=== PATIENT | female | born 1980 | race Caucasian/White ===

== ENCOUNTER 2023-01-24 16:34 | Inpatient (IN) | payer OTHER ==
[~2023-01-24] VITALS: Ht 152.4 cm; Wt 78.1 kg
[2023-01-24 16:40] VITALS: BP 120/86
[2023-01-24 17:31] LABS: BASO # 0.1 10*3/uL (0.0-0.1); BASO % 0.9 % (0.0-1.0); EOS # 0.3 10*3/uL (0.0-0.4); EOS % 3.5 % (1.0-4.0); HEMATOCRIT 39.3 % (37.0-47.0); LYMPH # 2.1 10*3/uL (1.3-4.4); LYMPH % 23.3 % (27.0-41.0); MEAN CELL VOLUME 83.4 fl (81.0-99.0); MEAN CORPUSCULAR HGB 27.4 pg (27.0-31.0); MEAN CORPUSCULAR HGB CONC 32.8 g/dl (33.0-37.0); MEAN PLATELET VOLUME 9.9 fl (9.6-12.3); MONO # 0.8 10*3/uL (0.1-1.0); NEUT # 5.6 10*3/uL (2.3-7.9); NEUT % 62.9 % (47.0-73.0); PLATELET COUNT AUTOMATED 355 10*3/uL (130-400); RED BLOOD COUNT 4.71 10*6/uL (4.10-5.10); RED CELL DISTRI WIDTH 13.7 % (0-14.5)
[2023-01-24 17:52] LABS: ALKALINE PHOSPHATASE 73 U/L (46-116); BUN 11 mg/dl (9-23); CHLORIDE 104 mmol/L (98-107); LIPASE 32 U/L (12-53); POTASSIUM 3.6 mmol/L (3.4-5.1); SGPT/ALT 21 U/L (10-49)
[2023-01-24 17:53] LABS: ACT PARTIAL THROMBO TIME 28.1 SECONDS (20.0-32.1); INTERNATIONAL NORM RATIO 1.1 (2.0-3.5)
[2023-01-24 17:57] LABS: BETA-HCG, QUANT < 3.0 mIU/mL (3-10)
[2023-01-24 18:25] LABS: BILIRUBIN Negative (Negative); BLOOD Negative (Negative); CLARITY Cloudy (Clear); COLOR Dark Yellow (Yellow); GLUCOSE 2+ (Negative); KETONE Trace (Negative); LEUKO ESTERASE Trace (Negative); NITRITE Negative (Negative); SPECIFIC GRAVITY >= 1.030 (1.001-1.030)
[2023-01-24 18:34] LABS: BACTERIA 1+; MUCOUS 3+
[2023-01-24] MEDS ORDERED: CLONAZEPAM1 M1 PO (19:24)
[2023-01-24] MEDS ORDERED: GABAPENTIN600 MG PO (19:25)
[2023-01-24] MEDS ORDERED: FLAGYL 375375 MG PO (19:26)
[2023-01-24] MEDS ORDERED: KLONOPIN0.5 MG PO (19:27)
[2023-01-24] MEDS ORDERED: ATOMOXETINE HCL40 MG PO (19:29)
[2023-01-24] MEDS ORDERED: ZOLPIDEM10 MG PO (19:30)
[2023-01-24] MEDS ORDERED: HYDROXYZIN PO (19:31)
[2023-01-24] MEDS ORDERED: HYDROXYZINE HYD50 MG PO (20:41)
[2023-01-24] MEDS ORDERED: MIRTAZAPINE15 M2 PO (20:44)
[2023-01-24 20:52] VITALS: BP 129/94
[2023-01-24 23:53] VITALS: BP 150/108
[2023-01-25 04:04] VITALS: BP 134/90
[2023-01-25 08:00] VITALS: BP 130/84
[2023-01-25 08:45] LABS: BASO # 0.1 10*3/uL (0.0-0.1); BASO % 0.9 % (0.0-1.0); EOS # 0.4 10*3/uL (0.0-0.4); EOS % 6.3 % (1.0-4.0); HEMATOCRIT 37.8 % (37.0-47.0); LYMPH % 28.6 % (27.0-41.0); MEAN CELL VOLUME 86.1 fl (81.0-99.0); MEAN CORPUSCULAR HGB 27.1 pg (27.0-31.0); MEAN CORPUSCULAR HGB CONC 31.5 g/dl (33.0-37.0); MEAN PLATELET VOLUME 10.1 fl (9.6-12.3); MONO # 0.8 10*3/uL (0.1-1.0); MONO % 11.5 % (3.0-9.0); NEUT # 3.6 10*3/uL (2.3-7.9); NEUT % 52.4 % (47.0-73.0); PLATELET COUNT AUTOMATED 312 10*3/uL (130-400); RED BLOOD COUNT 4.39 10*6/uL (4.10-5.10); RED CELL DISTRI WIDTH 13.8 % (0-14.5); WHITE BLOOD COUNT 6.8 10*3/uL (4.8-10.8)
[2023-01-25 09:21] LABS: ALKALINE PHOSPHATASE 62 U/L (46-116); BUN 7 mg/dl (9-23); CHLORIDE 107 mmol/L (98-107); CHOLESTEROL 131 mg/dL (<200); FREE T4 1.02 ng/dl (0.89-1.76); LDL CHOLESTEROL 73 mg/dL (9-159); SGPT/ALT 14 U/L (10-49); TOTAL PROTEIN 6.2 gm/dL (6.0-8.0); TRIGLYCERIDES 121 mg/dl (<150)
[2023-01-25 12:00] VITALS: BP 117/69
[2023-01-25 16:00] VITALS: BP 125/64
[2023-01-25 20:25] VITALS: BP 150/102
[2023-01-26] VITALS: BP 148/99
[2023-01-26 08:00] VITALS: BP 168/88
[2023-01-26 08:12] LABS: BASO # 0.1 10*3/uL (0.0-0.1); BASO % 0.9 % (0.0-1.0); EOS # 0.5 10*3/uL (0.0-0.4); EOS % 5.1 % (1.0-4.0); HEMATOCRIT 40.9 % (37.0-47.0); LYMPH # 1.8 10*3/uL (1.3-4.4); MEAN CELL VOLUME 86.3 fl (81.0-99.0); MEAN CORPUSCULAR HGB 27.6 pg (27.0-31.0); MONO % 10.9 % (3.0-9.0); NEUT # 5.9 10*3/uL (2.3-7.9); NEUT % 63.5 % (47.0-73.0); PLATELET COUNT AUTOMATED 321 10*3/uL (130-400); RED BLOOD COUNT 4.74 10*6/uL (4.10-5.10); RED CELL DISTRI WIDTH 13.5 % (0-14.5); WHITE BLOOD COUNT 9.4 10*3/uL (4.8-10.8)
[2023-01-26 08:43] LABS: CHLORIDE 103 mmol/L (98-107); POTASSIUM 4.4 mmol/L (3.4-5.1)
[2023-01-26 08:44] LABS: BUN < 5 mg/dl (9-23)
[2023-01-26 12:00] VITALS: BP 160/100
[2023-01-26 16:00] VITALS: BP 160/100
[2023-01-26 20:00] VITALS: BP 112/73
[2023-01-27] VITALS: BP 148/98
[2023-01-27 05:24] LABS: CHLORIDE 98 mmol/L (98-107); POTASSIUM 3.8 mmol/L (3.4-5.1)
[2023-01-27 05:26] LABS: BUN < 5 mg/dl (9-23)
[2023-01-27 06:12] LABS: BASO # 0.1 10*3/uL (0.0-0.1); BASO % 0.6 % (0.0-1.0); EOS # 0.3 10*3/uL (0.0-0.4); EOS % 2.8 % (1.0-4.0); HEMATOCRIT 43.4 % (37.0-47.0); LYMPH # 2.2 10*3/uL (1.3-4.4); LYMPH % 18.2 % (27.0-41.0); MEAN CELL VOLUME 84.6 fl (81.0-99.0); MEAN CORPUSCULAR HGB 27.5 pg (27.0-31.0); MEAN CORPUSCULAR HGB CONC 32.5 g/dl (33.0-37.0); MEAN PLATELET VOLUME 10.1 fl (9.6-12.3); MONO # 1.2 10*3/uL (0.1-1.0); MONO % 10.3 % (3.0-9.0); NEUT # 8.1 10*3/uL (2.3-7.9); NEUT % 67.6 % (47.0-73.0); PLATELET COUNT AUTOMATED 383 10*3/uL (130-400); RED BLOOD COUNT 5.13 10*6/uL (4.10-5.10); RED CELL DISTRI WIDTH 13.6 % (0-14.5); WHITE BLOOD COUNT 11.9 10*3/uL (4.8-10.8)
[2023-01-27 08:00] VITALS: BP 113/72
[2023-01-27 12:00] VITALS: BP 112/78
[2023-01-27 16:00] VITALS: BP 114/84
[2023-01-27 20:00] VITALS: BP 117/78
[2023-01-28] VITALS: BP 127/80
[2023-01-28 06:38] LABS: BASO # 0.1 10*3/uL (0.0-0.1); EOS # 0.5 10*3/uL (0.0-0.4); EOS % 7.2 % (1.0-4.0); HEMATOCRIT 42.6 % (37.0-47.0); LYMPH # 2.6 10*3/uL (1.3-4.4); MEAN CELL VOLUME 84.2 fl (81.0-99.0); MEAN CORPUSCULAR HGB 27.5 pg (27.0-31.0); MEAN CORPUSCULAR HGB CONC 32.6 g/dl (33.0-37.0); MEAN PLATELET VOLUME 9.9 fl (9.6-12.3); MONO # 0.8 10*3/uL (0.1-1.0); MONO % 11.9 % (3.0-9.0); NEUT # 3.1 10*3/uL (2.3-7.9); NEUT % 43.5 % (47.0-73.0); PLATELET COUNT AUTOMATED 396 10*3/uL (130-400); RED BLOOD COUNT 5.06 10*6/uL (4.10-5.10); RED CELL DISTRI WIDTH 13.6 % (0-14.5); WHITE BLOOD COUNT 7.1 10*3/uL (4.8-10.8)
[2023-01-28 08:00] VITALS: BP 118/83
[2023-01-28 08:41] LABS: BUN 5 mg/dl (9-23); CHLORIDE 103 mmol/L (98-107); POTASSIUM 3.9 mmol/L (3.4-5.1)
[2023-01-28 12:00] VITALS: BP 130/100
[2023-01-28 16:00] VITALS: BP 123/79
[2023-01-28 20:00] VITALS: BP 138/83
[2023-01-29] VITALS: BP 131/74
[2023-01-29 06:45] LABS: BASO # 0.1 10*3/uL (0.0-0.1); BASO % 1.3 % (0.0-1.0); EOS # 0.4 10*3/uL (0.0-0.4); EOS % 7.4 % (1.0-4.0); HEMATOCRIT 39.6 % (37.0-47.0); LYMPH # 1.9 10*3/uL (1.3-4.4); LYMPH % 34.5 % (27.0-41.0); MEAN CELL VOLUME 84.6 fl (81.0-99.0); MEAN CORPUSCULAR HGB 27.4 pg (27.0-31.0); MEAN CORPUSCULAR HGB CONC 32.3 g/dl (33.0-37.0); MEAN PLATELET VOLUME 9.6 fl (9.6-12.3); MONO # 0.8 10*3/uL (0.1-1.0); NEUT # 2.3 10*3/uL (2.3-7.9); NEUT % 42.4 % (47.0-73.0); PLATELET COUNT AUTOMATED 361 10*3/uL (130-400); RED BLOOD COUNT 4.68 10*6/uL (4.10-5.10); RED CELL DISTRI WIDTH 13.5 % (0-14.5); WHITE BLOOD COUNT 5.5 10*3/uL (4.8-10.8)
[2023-01-29 07:03] LABS: CHLORIDE 103 mmol/L (98-107); POTASSIUM 3.7 mmol/L (3.4-5.1)
[2023-01-29 07:05] LABS: BUN < 5 mg/dl (9-23)
[2023-01-29 08:21] VITALS: BP 129/88
[2023-01-29 12:18] VITALS: BP 134/109
[2023-01-29] MEDS ORDERED: METRONIDAZOLE500 M1 PO (14:47)
[2023-01-29] MEDS ORDERED: BACTRIM 400-801 EACH PO (14:49)
[2023-01-29] MEDS ORDERED: LISINOPRIL10 M1 PO (14:50)
[2023-01-29 15:00] VITALS: BP 144/96
[2023-01-29 15:30] VITALS: BP 148/143
[2023-01-29 17:12] VITALS: BP 141/92
[2023-01-29] MEDS ORDERED: LISINOPRIL20 MG PO (17:15)
[2023-01-29] MEDS ORDERED: HYDROCODONE-AC1 EAC1 PO (17:32)
== END 2023-01-29 18:50 | disposition home or self-care (01) | DRG 244 ==
LOC: ED 16:34 → EDHOLD 19:02 → 5E 19:02 → EDHOLD 01-25 07:47 → 5E 01-25 19:43
PROVIDERS: Emergency Medicine; Family Medicine; Internal Medicine; ADMIT Internal Medicine; ATTEND Internal Medicine
DX: K57.33 Diverticulitis of large intestine without perforation or abscess with bleeding (principal); E87.1 Hypo-osmolality and hyponatremia; E11.40 Type 2 diabetes mellitus with diabetic neuropathy, unspecified; N30.00 Acute cystitis without hematuria; K58.9 Irritable bowel syndrome, unspecified; K43.9 Ventral hernia without obstruction or gangrene; E11.65 Type 2 diabetes mellitus with hyperglycemia; K76.0 Fatty (change of) liver, not elsewhere classified; F51.04 Psychophysiologic insomnia; B95.62 Methicillin resistant Staphylococcus aureus infection as the cause of diseases classified elsewhere; F32.9 Major depressive disorder, single episode, unspecified; M19.90 Unspecified osteoarthritis, unspecified site; F41.9 Anxiety disorder, unspecified; G43.909 Migraine, unspecified, not intractable, without status migrainosus; Z88.0 Allergy status to penicillin; Z88.8 Allergy status to other drugs, medicaments and biological substances; Z91.041 Radiographic dye allergy status; Q79.60 Ehlers-Danlos syndrome, unspecified; Z90.49 Acquired absence of other specified parts of digestive tract; Z79.899 Other long term (current) drug therapy

== ENCOUNTER 2023-02-06 10:58 | Emergency (ER) | payer OTHER ==
[~2023-02-06 10:58] MED LIST: ATOMOXETINE HCL40 MG PO; BACTRIM 400-801 EACH PO; CLONAZEPAM1 M1 PO; FLAGYL 375375 MG PO; GABAPENTIN600 MG PO; HYDROCODONE-AC1 EAC1 PO; HYDROXYZIN PO; HYDROXYZINE HYD50 MG PO; KLONOPIN0.5 MG PO; LISINOPRIL10 M1 PO; LISINOPRIL20 MG PO; METRONIDAZOLE500 M1 PO; MIRTAZAPINE15 M2 PO; ZOLPIDEM10 MG PO
[2023-02-06 12:25] LABS: BASO # 0.1 10*3/uL (0.0-0.1); BASO % 1.7 % (0.0-1.0); EOS # 0.2 10*3/uL (0.0-0.4); HEMATOCRIT 42.7 % (37.0-47.0); LYMPH # 1.5 10*3/uL (1.3-4.4); MEAN CELL VOLUME 82.1 fl (81.0-99.0); MEAN CORPUSCULAR HGB 26.7 pg (27.0-31.0); MEAN CORPUSCULAR HGB CONC 32.6 g/dl (33.0-37.0); MEAN PLATELET VOLUME 9.8 fl (9.6-12.3); MONO # 0.4 10*3/uL (0.1-1.0); MONO % 7.9 % (3.0-9.0); NEUT # 2.5 10*3/uL (2.3-7.9); PLATELET COUNT AUTOMATED 461 10*3/uL (130-400); RED CELL DISTRI WIDTH 13.1 % (0-14.5); WHITE BLOOD COUNT 4.8 10*3/uL (4.8-10.8)
[2023-02-06 12:37] LABS: ACT PARTIAL THROMBO TIME 28.1 SECONDS (20.0-32.1)
[2023-02-06 12:49] LABS: ALKALINE PHOSPHATASE 73 U/L (46-116); BUN 7 mg/dl (9-23); CHLORIDE 100 mmol/L (98-107); LIPASE 34 U/L (12-53); POTASSIUM 4.3 mmol/L (3.4-5.1); SGPT/ALT 36 U/L (10-49); TOTAL PROTEIN 7.6 gm/dL (6.0-8.0)
[2023-02-06 12:50] LABS: BETA-HCG, QUANT < 3.0 mIU/mL (3-10)
[2023-02-06 15:02] LABS: BILIRUBIN Negative (Negative); BLOOD Negative (Negative); CLARITY Clear (Clear); COLOR Yellow (Yellow); GLUCOSE Negative (Negative); KETONE Negative (Negative); LEUKO ESTERASE 1+ (Negative); NITRITE Negative (Negative); SPECIFIC GRAVITY 1.015 (1.001-1.030)
[2023-02-06 15:18] LABS: BACTERIA 2+; RBC 0-2 rbc/hpf (0-2)
[2023-02-06] MEDS ORDERED: HYDROCODONE-AC1 EAC1 PO (16:26)
[2023-02-06] MEDS ORDERED: DIFLUCAN150 MG PO (16:26)
[2023-02-06] MEDS ORDERED: METRONIDAZOLE500 M1 PO (16:26)
[2023-02-06] MEDS ORDERED: SEPTDS PO (16:26)
[2023-02-06] MEDS ORDERED: PHENERGAN25 M3 PO (16:26)
== END 2023-02-06 16:40 | disposition home or self-care (01) ==
LOC: ED 10:58
PROVIDERS: Emergency Medicine
DX: K57.32 Diverticulitis of large intestine without perforation or abscess without bleeding (principal); R11.0 Nausea; I48.91 Unspecified atrial fibrillation; Z91.041 Radiographic dye allergy status; Z88.0 Allergy status to penicillin; Z88.8 Allergy status to other drugs, medicaments and biological substances; Z90.49 Acquired absence of other specified parts of digestive tract; Z98.890 Other specified postprocedural states

== ENCOUNTER 2023-02-10 13:10 | Emergency (ER) | payer OTHER ==
[~2023-02-10 13:10] MED LIST changes: +DIFLUCAN150 MG PO; +PHENERGAN25 M3 PO; +SEPTDS PO
[2023-02-10 13:31] LABS: BILIRUBIN Negative (Negative); BLOOD Negative (Negative); CLARITY Cloudy (Clear); COLOR Yellow (Yellow); GLUCOSE 1+ (Negative); KETONE Trace (Negative); LEUKO ESTERASE 1+ (Negative); NITRITE Negative (Negative); PH 6.5 (4.5-8.0); SPECIFIC GRAVITY >= 1.030 (1.001-1.030)
[2023-02-10 13:39] LABS: BACTERIA 2+; EPITHELIAL CELLS 31-40; MUCOUS 2+
[2023-02-10 14:03] LABS: ALKALINE PHOSPHATASE 77 U/L (46-116); BUN 7 mg/dl (9-23); CHLORIDE 101 mmol/L (98-107); POTASSIUM 4.1 mmol/L (3.4-5.1); SGPT/ALT 42 U/L (10-49)
[2023-02-10 14:32] LABS: BASO # 0.1 10*3/uL (0.0-0.1); BASO % 1.3 % (0.0-1.0); EOS # 0.3 10*3/uL (0.0-0.4); EOS % 4.3 % (1.0-4.0); HEMATOCRIT 43.5 % (37.0-47.0); LYMPH # 2.1 10*3/uL (1.3-4.4); LYMPH % 33.7 % (27.0-41.0); MEAN CELL VOLUME 82.2 fl (81.0-99.0); MEAN CORPUSCULAR HGB 27.4 pg (27.0-31.0); MEAN CORPUSCULAR HGB CONC 33.3 g/dl (33.0-37.0); MEAN PLATELET VOLUME 9.6 fl (9.6-12.3); MONO # 0.5 10*3/uL (0.1-1.0); MONO % 8.6 % (3.0-9.0); NEUT # 3.2 10*3/uL (2.3-7.9); NEUT % 51.6 % (47.0-73.0); PLATELET COUNT AUTOMATED 465 10*3/uL (130-400); RED BLOOD COUNT 5.29 10*6/uL (4.10-5.10); RED CELL DISTRI WIDTH 13.3 % (0-14.5); WHITE BLOOD COUNT 6.3 10*3/uL (4.8-10.8)
[2023-02-10] MEDS ORDERED: ONDANSETRON4 MG SL (15:12)
== END 2023-02-10 15:35 | disposition home or self-care (01) ==
LOC: ED 13:10
PROVIDERS: Nurse Practitioner Family
DX: K57.32 Diverticulitis of large intestine without perforation or abscess without bleeding (principal); R11.0 Nausea; I48.91 Unspecified atrial fibrillation; E11.9 Type 2 diabetes mellitus without complications; Z91.041 Radiographic dye allergy status; Z88.0 Allergy status to penicillin; Z88.8 Allergy status to other drugs, medicaments and biological substances; Z90.49 Acquired absence of other specified parts of digestive tract; Z98.890 Other specified postprocedural states

== ENCOUNTER 2023-02-25 09:54 | Emergency (ER) | payer OTHER ==
[~2023-02-25] VITALS: Ht 152.4 cm; Wt 77.1 kg
[~2023-02-25 09:54] MED LIST changes: +ONDANSETRON4 MG SL
[2023-02-25 11:34] LABS: BASO % 0.4 % (0.0-1.0); EOS # 0.2 10*3/uL (0.0-0.4); EOS % 2.3 % (1.0-4.0); HEMATOCRIT 40.2 % (37.0-47.0); LYMPH # 1.7 10*3/uL (1.3-4.4); LYMPH % 19.4 % (27.0-41.0); MEAN CELL VOLUME 82.4 fl (81.0-99.0); MEAN CORPUSCULAR HGB 27.9 pg (27.0-31.0); MEAN CORPUSCULAR HGB CONC 33.8 g/dl (33.0-37.0); MEAN PLATELET VOLUME 9.9 fl (9.6-12.3); MONO # 0.6 10*3/uL (0.1-1.0); NEUT # 6.3 10*3/uL (2.3-7.9); NEUT % 70.3 % (47.0-73.0); PLATELET COUNT AUTOMATED 323 10*3/uL (130-400); RED BLOOD COUNT 4.88 10*6/uL (4.10-5.10); RED CELL DISTRI WIDTH 13.5 % (0-14.5); WHITE BLOOD COUNT 8.9 10*3/uL (4.8-10.8)
[2023-02-25 11:54] LABS: BILIRUBIN Negative (Negative); BLOOD Negative (Negative); CLARITY Clear (Clear); COLOR Yellow (Yellow); GLUCOSE Trace (Negative); KETONE 1+ (Negative); LEUKO ESTERASE Negative (Negative); NITRITE Negative (Negative); PH 6.5 (4.5-8.0); SPECIFIC GRAVITY 1.025 (1.001-1.030)
[2023-02-25 12:04] LABS: ALKALINE PHOSPHATASE 56 U/L (46-116); BUN 8 mg/dl (9-23); CHLORIDE 103 mmol/L (98-107); POTASSIUM 3.9 mmol/L (3.4-5.1); SGPT/ALT 16 U/L (10-49); TOTAL PROTEIN 6.9 gm/dL (6.0-8.0)
[2023-02-25 12:34] LABS: MUCOUS 1+
[2023-02-25 12:35] LABS: BACTERIA 1+
[2023-02-25] MEDS ORDERED: PHENERGAN25 M3 PO ×2 (13:05)
[2023-02-28] MEDS ORDERED: GABAPENTIN600 MG PO (13:45)
[2023-02-28] MEDS ORDERED: HYDROCODONE-AC1 EAC1 PO (13:45)
[2023-02-28] MEDS ORDERED: PHENERGAN25 M3 PO (13:45)
[2023-02-28] MEDS ORDERED: CLONAZEPAM1 MG PO (13:45)
[2023-02-28] MEDS ORDERED: KLONOPIN0.5 MG PO (13:45)
== END 2023-02-25 13:10 | disposition home or self-care (01) ==
LOC: ED 09:54
PROVIDERS: Nurse Practitioner Family
DX: R10.32 Left lower quadrant pain (principal); R11.2 Nausea with vomiting, unspecified; R19.7 Diarrhea, unspecified; F17.290 Nicotine dependence, other tobacco product, uncomplicated; Z91.041 Radiographic dye allergy status; Z88.8 Allergy status to other drugs, medicaments and biological substances; Z88.0 Allergy status to penicillin; Z79.899 Other long term (current) drug therapy; Z79.2 Long term (current) use of antibiotics; Z90.49 Acquired absence of other specified parts of digestive tract; Z98.890 Other specified postprocedural states

== ENCOUNTER 2023-03-15 09:19 | Emergency (ER) | payer OTHER ==
[~2023-03-15] VITALS: Ht 152.4 cm; Wt 72.6 kg
[~2023-03-15 09:19] MED LIST changes: +CLONAZEPAM1 MG PO
[2023-03-15 10:59] LABS: BILIRUBIN Negative (Negative); BLOOD Negative (Negative); CLARITY Turbid (Clear); COLOR Yellow (Yellow); GLUCOSE Negative (Negative); KETONE 1+ (Negative); LEUKO ESTERASE Negative (Negative); NITRITE Negative (Negative); PH 7.5 (4.5-8.0); UROBILINOGEN 0.2 E.U./dl (0.0-1.0)
[2023-03-15 11:14] LABS: BACTERIA 2+
[2023-03-15 11:19] LABS: BASO % 0.5 % (0.0-1.0); HEMATOCRIT 39.6 % (37.0-47.0); LYMPH # 0.8 10*3/uL (1.3-4.4); LYMPH % 13.8 % (27.0-41.0); MEAN CELL VOLUME 84.4 fl (81.0-99.0); MEAN CORPUSCULAR HGB 27.3 pg (27.0-31.0); MEAN CORPUSCULAR HGB CONC 32.3 g/dl (33.0-37.0); MEAN PLATELET VOLUME 10.2 fl (9.6-12.3); MONO # 0.7 10*3/uL (0.1-1.0); MONO % 11.8 % (3.0-9.0); NEUT # 4.2 10*3/uL (2.3-7.9); NEUT % 73.7 % (47.0-73.0); PLATELET COUNT AUTOMATED 316 10*3/uL (130-400); RED BLOOD COUNT 4.69 10*6/uL (4.10-5.10); WHITE BLOOD COUNT 5.7 10*3/uL (4.8-10.8)
[2023-03-15 11:44] LABS: ALKALINE PHOSPHATASE 60 U/L (46-116); CHLORIDE 103 mmol/L (98-107); LIPASE 31 U/L (12-53); POTASSIUM 3.9 mmol/L (3.4-5.1); SGPT/ALT 29 U/L (5-49); TOTAL PROTEIN 6.9 gm/dL (6.0-8.0)
[2023-03-15 11:47] LABS: BUN < 5 mg/dl (9-23)
[2023-03-15] MEDS ORDERED: METRONIDAZOLE500 M1 PO ×2 (11:57)
[2023-03-15] MEDS ORDERED: TRAMADOL HCL50 MG PO ×2 (11:57)
[2023-03-15] MEDS ORDERED: ONDANSETRON4 MG SL ×2 (11:57)
[2023-03-15] MEDS ORDERED: CIPRO500 MG PO ×2 (11:57)
[2023-03-19] MEDS ORDERED: MELATONIN10 M2 PO (21:43)
== END 2023-03-15 12:11 | disposition home or self-care (01) ==
LOC: ED 09:19
PROVIDERS: Emergency Medicine
DX: K52.9 Noninfective gastroenteritis and colitis, unspecified (principal); R11.2 Nausea with vomiting, unspecified; R00.2 Palpitations; R10.9 Unspecified abdominal pain; R07.81 Pleurodynia; Z91.041 Radiographic dye allergy status; Z88.8 Allergy status to other drugs, medicaments and biological substances; Z88.0 Allergy status to penicillin; Z90.49 Acquired absence of other specified parts of digestive tract; Z98.890 Other specified postprocedural states; F17.290 Nicotine dependence, other tobacco product, uncomplicated

== ENCOUNTER 2023-03-18 10:53 | Emergency (ER) | payer MEDICAID ==
[~2023-03-18] VITALS: Ht 152.4 cm; Wt 72.6 kg
[~2023-03-18 10:53] MED LIST changes: +CIPRO500 MG PO; +TRAMADOL HCL50 MG PO
[2023-03-18 12:22] LABS: BILIRUBIN Negative (Negative); BLOOD Trace-Lysed (Negative); CLARITY Turbid (Clear); COLOR Yellow (Yellow); GLUCOSE Negative (Negative); KETONE 4+ (Negative); LEUKO ESTERASE 2+ (Negative); NITRITE Negative (Negative); SPECIFIC GRAVITY 1.025 (1.001-1.030); UROBILINOGEN 0.2 E.U./dl (0.0-1.0)
[2023-03-18 12:22] LABS: BASO % 0.2 % (0.0-1.0); EOS % 0.3 % (1.0-4.0); LYMPH # 1.2 10*3/uL (1.3-4.4); LYMPH % 13.8 % (27.0-41.0); MEAN CELL VOLUME 83.7 fl (81.0-99.0); MEAN CORPUSCULAR HGB 27.3 pg (27.0-31.0); MEAN CORPUSCULAR HGB CONC 32.6 g/dl (33.0-37.0); MEAN PLATELET VOLUME 10.2 fl (9.6-12.3); MONO # 0.3 10*3/uL (0.1-1.0); MONO % 3.2 % (3.0-9.0); NEUT # 7.4 10*3/uL (2.3-7.9); NEUT % 82.3 % (47.0-73.0); PLATELET COUNT AUTOMATED 355 10*3/uL (130-400); RED BLOOD COUNT 5.02 10*6/uL (4.10-5.10); RED CELL DISTRI WIDTH 13.6 % (0-14.5)
[2023-03-18 12:32] LABS: BACTERIA 4+; EPITHELIAL CELLS TNTC; WBC TNTC wbc/hpf (0-5)
[2023-03-18 12:33] LABS: RBC 0-2 rbc/hpf (0-2)
[2023-03-18 12:48] LABS: ALKALINE PHOSPHATASE 63 U/L (46-116); BUN 10 mg/dl (9-23); CHLORIDE 99 mmol/L (98-107); LIPASE 28 U/L (12-53); POTASSIUM 4.1 mmol/L (3.4-5.1); SGPT/ALT 28 U/L (5-49); TOTAL PROTEIN 7.7 gm/dL (6.0-8.0)
[2023-03-18] MEDS ORDERED: ONDANSETRON4 MG SL (14:29)
[2023-03-19] MEDS ORDERED: MELATONIN10 M2 PO (21:43)
[2023-03-21] MEDS ORDERED: ONDANSETRON4 MG SL (12:05)
[2023-03-21] MEDS ORDERED: GABAPENTIN600 MG PO (12:05)
== END 2023-03-18 14:38 | disposition home or self-care (01) ==
LOC: ED 10:53
PROVIDERS: Physician Assistant Medical
DX: N39.0 Urinary tract infection, site not specified (principal); K52.9 Noninfective gastroenteritis and colitis, unspecified; Z91.041 Radiographic dye allergy status; Z88.0 Allergy status to penicillin; Z88.8 Allergy status to other drugs, medicaments and biological substances; Z98.890 Other specified postprocedural states; F17.290 Nicotine dependence, other tobacco product, uncomplicated

== ENCOUNTER 2023-03-18 18:16 | Emergency (ER) | payer MEDICAID ==
[2023-03-18 20:05] LABS: URINE AMPHETAMINES Negative (1000ng/ml); URINE BARBITURATES Negative (200ng/ml); URINE BENZODIAZEPINES Negative (200ng/ml); URINE CANNABINOIDS (THC) Positive (50ng/ml); URINE COCAINE Negative (300ng/ml); URINE METHADONE Negative (300ng/ml); URINE OPIATES Negative (300ng/ml); URINE PHENCYCLIDINE Negative (25ng/ml)
[2023-03-18 20:24] LABS: ETHYL ALCOHOL < 3.0 mg/dl (<3)
[2023-03-19] MEDS ORDERED: MELATONIN10 M2 PO (21:43)
[2023-03-21] MEDS ORDERED: GABAPENTIN600 MG PO (12:05)
[2023-03-21] MEDS ORDERED: ONDANSETRON4 MG SL (12:05)
== END 2023-03-18 20:54 | disposition home or self-care (01) ==
LOC: ED 18:16
PROVIDERS: Physician Assistant Medical
DX: F32.A Depression, unspecified (principal); Z91.041 Radiographic dye allergy status; Z88.0 Allergy status to penicillin; Z88.8 Allergy status to other drugs, medicaments and biological substances; Z90.49 Acquired absence of other specified parts of digestive tract; Z98.890 Other specified postprocedural states; Z79.899 Other long term (current) drug therapy

== ENCOUNTER 2023-03-27 11:34 | Emergency (ER) | payer MEDICAID ==
[~2023-03-27] VITALS: Wt 73.5 kg
[~2023-03-27 11:34] MED LIST changes: +MELATONIN10 M2 PO
[2023-03-27] MEDS ORDERED: DILTIAZEM 24HR180 MG PO (11:47)
[2023-03-27 12:46] LABS: BASO % 0.3 % (0.0-1.0); EOS # 0.1 10*3/uL (0.0-0.4); EOS % 0.4 % (1.0-4.0); HEMATOCRIT 42.5 % (37.0-47.0); LYMPH # 1.2 10*3/uL (1.3-4.4); LYMPH % 9.6 % (27.0-41.0); MEAN CELL VOLUME 80.5 fl (81.0-99.0); MEAN CORPUSCULAR HGB 27.3 pg (27.0-31.0); MEAN CORPUSCULAR HGB CONC 33.9 g/dl (33.0-37.0); MEAN PLATELET VOLUME 9.9 fl (9.6-12.3); MONO # 0.8 10*3/uL (0.1-1.0); MONO % 6.7 % (3.0-9.0); NEUT # 9.9 10*3/uL (2.3-7.9); NEUT % 82.6 % (47.0-73.0); PLATELET COUNT AUTOMATED 496 10*3/uL (130-400); RED BLOOD COUNT 5.28 10*6/uL (4.10-5.10)
[2023-03-27 13:05] LABS: ALKALINE PHOSPHATASE 59 U/L (46-116); BUN 8 mg/dl (9-23); CHLORIDE 102 mmol/L (98-107); LIPASE 28 U/L (12-53); POTASSIUM 4.1 mmol/L (3.4-5.1); SGPT/ALT 20 U/L (5-49); TOTAL PROTEIN 7.7 gm/dL (6.0-8.0)
[2023-03-27 13:25] LABS: BILIRUBIN Negative (Negative); BLOOD Negative (Negative); CLARITY Cloudy (Clear); COLOR Yellow (Yellow); GLUCOSE Trace (Negative); KETONE 4+ (Negative); LEUKO ESTERASE Negative (Negative); NITRITE Negative (Negative); SPECIFIC GRAVITY 1.025 (1.001-1.030)
[2023-03-27 13:42] LABS: BACTERIA 1+; EPITHELIAL CELLS TNTC
[2023-03-27] MEDS ORDERED: CIPRO500 MG PO (13:54)
[2023-03-27] MEDS ORDERED: METRONIDAZOLE500 M1 PO (13:54)
== END 2023-03-27 14:30 | disposition home or self-care (01) ==
LOC: ED 11:34
PROVIDERS: Nurse Practitioner Family
DX: K52.9 Noninfective gastroenteritis and colitis, unspecified (principal); E11.65 Type 2 diabetes mellitus with hyperglycemia; E87.1 Hypo-osmolality and hyponatremia; F41.9 Anxiety disorder, unspecified; M19.90 Unspecified osteoarthritis, unspecified site; I48.91 Unspecified atrial fibrillation; I10 Essential (primary) hypertension; G43.909 Migraine, unspecified, not intractable, without status migrainosus; E11.40 Type 2 diabetes mellitus with diabetic neuropathy, unspecified; Z90.49 Acquired absence of other specified parts of digestive tract; Z91.041 Radiographic dye allergy status; Z88.0 Allergy status to penicillin; Z88.8 Allergy status to other drugs, medicaments and biological substances; Z98.890 Other specified postprocedural states

== ENCOUNTER 2023-04-06 08:52 | Emergency (ER) | payer MEDICAID ==
[~2023-04-06] VITALS: Ht 152.4 cm
[~2023-04-06 08:52] MED LIST changes: +DILTIAZEM 24HR180 MG PO; +LEVOFLOXACIN750 M2 PO; +LINEZOLID600 MG PO; +ONDANSETRON HYDR4 M1 PO; +ZESTRIL10 MG PO
[2023-04-06 09:45] LABS: BASO % 0.6 % (0.0-1.0); EOS % 0.3 % (1.0-4.0); HEMATOCRIT 38.9 % (37.0-47.0); LYMPH # 1.1 10*3/uL (1.3-4.4); MEAN CELL VOLUME 84.2 fl (81.0-99.0); MEAN CORPUSCULAR HGB 27.7 pg (27.0-31.0); MEAN CORPUSCULAR HGB CONC 32.9 g/dl (33.0-37.0); MEAN PLATELET VOLUME 10.3 fl (9.6-12.3); MONO # 0.4 10*3/uL (0.1-1.0); NEUT # 5.5 10*3/uL (2.3-7.9); NEUT % 78.8 % (47.0-73.0); PLATELET COUNT AUTOMATED 294 10*3/uL (130-400); RED BLOOD COUNT 4.62 10*6/uL (4.10-5.10); RED CELL DISTRI WIDTH 15.3 % (0-14.5)
[2023-04-06 10:06] LABS: ALKALINE PHOSPHATASE 53 U/L (46-116); BUN 5 mg/dl (9-23); CHLORIDE 107 mmol/L (98-107); LIPASE 30 U/L (12-53); POTASSIUM 3.5 mmol/L (3.4-5.1); SGPT/ALT 38 U/L (5-49)
[2023-04-06 10:07] LABS: BILIRUBIN Negative (Negative); BLOOD 3+ (Negative); CLARITY Clear (Clear); COLOR Yellow (Yellow); GLUCOSE Trace (Negative); KETONE 1+ (Negative); LEUKO ESTERASE Negative (Negative); NITRITE Negative (Negative); PH 5.5 (4.5-8.0); SPECIFIC GRAVITY 1.025 (1.001-1.030); UROBILINOGEN 0.2 E.U./dl (0.0-1.0)
[2023-04-06 10:11] LABS: B-hCG (QUALITATIVE) NEGATIVE (NEGATIVE); ETHYL ALCOHOL < 3.0 mg/dl (<3)
[2023-04-06 10:14] LABS: URINE AMPHETAMINES Negative (1000ng/ml); URINE BARBITURATES Negative (200ng/ml); URINE BENZODIAZEPINES Negative (200ng/ml); URINE CANNABINOIDS (THC) Positive (50ng/ml); URINE COCAINE Negative (300ng/ml); URINE METHADONE Negative (300ng/ml); URINE OPIATES Negative (300ng/ml); URINE PHENCYCLIDINE Negative (25ng/ml)
[2023-04-06 10:36] LABS: RBC TNTC rbc/hpf (0-2)
[2023-04-06 10:37] LABS: BACTERIA 2+; WBC 0-2 wbc/hpf (0-5)
[2023-04-06] MEDS ORDERED: FLAGYL 375375 MG PO ×4 (13:35→15:30)
== END 2023-04-06 15:41 | disposition home or self-care (01) ==
LOC: ED 08:52
PROVIDERS: Family Medicine
DX: A04.72 Enterocolitis due to Clostridium difficile, not specified as recurrent (principal); N83.202 Unspecified ovarian cyst, left side; F41.9 Anxiety disorder, unspecified; F32.A Depression, unspecified; E11.9 Type 2 diabetes mellitus without complications; I10 Essential (primary) hypertension; J45.909 Unspecified asthma, uncomplicated; F17.290 Nicotine dependence, other tobacco product, uncomplicated; Z91.041 Radiographic dye allergy status; Z88.0 Allergy status to penicillin; Z88.8 Allergy status to other drugs, medicaments and biological substances; Z79.899 Other long term (current) drug therapy; Z79.2 Long term (current) use of antibiotics; Z98.890 Other specified postprocedural states; Z90.49 Acquired absence of other specified parts of digestive tract

== ENCOUNTER 2023-04-09 07:44 | Emergency (ER) | payer MEDICAID ==
[~2023-04-09] VITALS: Ht 152.4 cm
[2023-04-09 08:36] LABS: BASO # 0.1 10*3/uL (0.0-0.1); BASO % 0.8 % (0.0-1.0); EOS # 0.2 10*3/uL (0.0-0.4); EOS % 2.8 % (1.0-4.0); HEMATOCRIT 39.9 % (37.0-47.0); LYMPH # 1.1 10*3/uL (1.3-4.4); LYMPH % 16.2 % (27.0-41.0); MEAN CELL VOLUME 82.6 fl (81.0-99.0); MEAN CORPUSCULAR HGB 27.7 pg (27.0-31.0); MEAN CORPUSCULAR HGB CONC 33.6 g/dl (33.0-37.0); MEAN PLATELET VOLUME 10.3 fl (9.6-12.3); MONO # 0.5 10*3/uL (0.1-1.0); MONO % 7.9 % (3.0-9.0); NEUT # 4.7 10*3/uL (2.3-7.9); NEUT % 72.1 % (47.0-73.0); PLATELET COUNT AUTOMATED 312 10*3/uL (130-400); RED BLOOD COUNT 4.83 10*6/uL (4.10-5.10); RED CELL DISTRI WIDTH 15.2 % (0-14.5); WHITE BLOOD COUNT 6.5 10*3/uL (4.8-10.8)
[2023-04-09 08:47] LABS: ACT PARTIAL THROMBO TIME 26.4 SECONDS (20.0-32.1)
[2023-04-09 08:58] LABS: ALKALINE PHOSPHATASE 51 U/L (46-116); BUN 6 mg/dl (9-23); CHLORIDE 107 mmol/L (98-107); LIPASE 31 U/L (12-53); POTASSIUM 3.5 mmol/L (3.4-5.1); SGPT/ALT 20 U/L (5-49); TOTAL PROTEIN 7.1 gm/dL (6.0-8.0)
[2023-04-09 09:02] LABS: BETA-HCG, QUANT < 3.0 mIU/mL (3-10)
[2023-04-09] MEDS ORDERED: HYDROCODONE-AC1 EAC1 PO ×4 (09:47→10:19)
[2023-04-09] MEDS ORDERED: PHENERGAN25 M3 PO ×4 (09:47→10:19)
[2023-04-10] MEDS ORDERED: ATIVAN1 MG PO (11:46)
== END 2023-04-09 10:30 | disposition home or self-care (01) ==
LOC: ED 07:44
PROVIDERS: Emergency Medicine
DX: A04.72 Enterocolitis due to Clostridium difficile, not specified as recurrent (principal); R11.0 Nausea; E11.9 Type 2 diabetes mellitus without complications; Z91.041 Radiographic dye allergy status; Z88.0 Allergy status to penicillin; Z88.8 Allergy status to other drugs, medicaments and biological substances; Z90.49 Acquired absence of other specified parts of digestive tract; Z98.890 Other specified postprocedural states

== ENCOUNTER 2023-04-10 09:44 | Emergency (ER) | payer MEDICAID ==
[2023-04-10 10:28] LABS: BASO % 0.5 % (0.0-1.0); EOS % 0.1 % (1.0-4.0); LYMPH % 11.4 % (27.0-41.0); MEAN CELL VOLUME 83.3 fl (81.0-99.0); MEAN CORPUSCULAR HGB 27.6 pg (27.0-31.0); MEAN CORPUSCULAR HGB CONC 33.1 g/dl (33.0-37.0); MONO # 0.5 10*3/uL (0.1-1.0); NEUT # 6.9 10*3/uL (2.3-7.9); NEUT % 81.9 % (47.0-73.0); PLATELET COUNT AUTOMATED 324 10*3/uL (130-400); RED BLOOD COUNT 4.68 10*6/uL (4.10-5.10); RED CELL DISTRI WIDTH 15.3 % (0-14.5); WHITE BLOOD COUNT 8.4 10*3/uL (4.8-10.8)
[2023-04-10 10:55] LABS: ALKALINE PHOSPHATASE 54 U/L (46-116); BUN 5 mg/dl (9-23); CHLORIDE 104 mmol/L (98-107); LIPASE 28 U/L (12-53); POTASSIUM 3.4 mmol/L (3.4-5.1); SGPT/ALT 18 U/L (5-49)
[2023-04-10 10:57] LABS: BETA-HCG, QUANT < 3.0 mIU/mL (3-10)
[2023-04-10] MEDS ORDERED: ATIVAN1 MG PO (11:46)
== END 2023-04-10 11:48 | disposition home or self-care (01) ==
LOC: ED 09:44
PROVIDERS: Emergency Medicine
DX: F41.9 Anxiety disorder, unspecified (principal); E11.9 Type 2 diabetes mellitus without complications; Z91.041 Radiographic dye allergy status; Z88.0 Allergy status to penicillin; Z88.8 Allergy status to other drugs, medicaments and biological substances; Z90.49 Acquired absence of other specified parts of digestive tract; Z98.890 Other specified postprocedural states

== ENCOUNTER 2023-04-13 09:42 | Emergency (ER) | payer MEDICAID ==
[~2023-04-13] VITALS: Ht 152.4 cm; Wt 72.6 kg
[~2023-04-13 09:42] MED LIST changes: +ATIVAN1 MG PO
[2023-04-13] MEDS ORDERED: FLAGYL 375375 MG PO (09:56)
[2023-04-13 12:05] LABS: BASO # 0.1 10*3/uL (0.0-0.1); BASO % 0.7 % (0.0-1.0); EOS % 0.4 % (1.0-4.0); HEMATOCRIT 40.2 % (37.0-47.0); LYMPH % 12.6 % (27.0-41.0); MEAN CELL VOLUME 83.4 fl (81.0-99.0); MEAN CORPUSCULAR HGB 27.6 pg (27.0-31.0); MEAN CORPUSCULAR HGB CONC 33.1 g/dl (33.0-37.0); MEAN PLATELET VOLUME 9.5 fl (9.6-12.3); MONO # 0.6 10*3/uL (0.1-1.0); MONO % 7.5 % (3.0-9.0); NEUT # 5.9 10*3/uL (2.3-7.9); NEUT % 78.5 % (47.0-73.0); PLATELET COUNT AUTOMATED 403 10*3/uL (130-400); RED BLOOD COUNT 4.82 10*6/uL (4.10-5.10); WHITE BLOOD COUNT 7.6 10*3/uL (4.8-10.8)
[2023-04-13 12:27] LABS: ALKALINE PHOSPHATASE 54 U/L (46-116); BUN 7 mg/dl (9-23); CHLORIDE 106 mmol/L (98-107); LIPASE 29 U/L (12-53); POTASSIUM 4.1 mmol/L (3.4-5.1); SGPT/ALT 16 U/L (5-49); TOTAL PROTEIN 7.2 gm/dL (6.0-8.0)
[2023-04-13] MEDS ORDERED: PHENERGAN25 M3 PO (13:51)
[2023-04-13] MEDS ORDERED: ONDANSETRON4 MG SL (13:51)
== END 2023-04-13 14:25 | disposition home or self-care (01) ==
LOC: ED 09:42
PROVIDERS: Emergency Medicine
DX: R10.84 Generalized abdominal pain (principal); A04.72 Enterocolitis due to Clostridium difficile, not specified as recurrent; R11.2 Nausea with vomiting, unspecified; E11.9 Type 2 diabetes mellitus without complications; I10 Essential (primary) hypertension; E78.5 Hyperlipidemia, unspecified; I48.91 Unspecified atrial fibrillation; F41.9 Anxiety disorder, unspecified; F32.A Depression, unspecified; Z91.041 Radiographic dye allergy status; Z88.0 Allergy status to penicillin; Z88.8 Allergy status to other drugs, medicaments and biological substances; Z90.49 Acquired absence of other specified parts of digestive tract; Z98.890 Other specified postprocedural states

== ENCOUNTER 2023-04-14 08:22 | Emergency (ER) | payer MEDICAID ==
[2023-04-14 08:56] LABS: BASO # 0.1 10*3/uL (0.0-0.1); BASO % 0.6 % (0.0-1.0); EOS # 0.1 10*3/uL (0.0-0.4); EOS % 1.2 % (1.0-4.0); HEMATOCRIT 39.1 % (37.0-47.0); LYMPH # 1.1 10*3/uL (1.3-4.4); LYMPH % 12.5 % (27.0-41.0); MEAN CELL VOLUME 83.9 fl (81.0-99.0); MEAN CORPUSCULAR HGB 28.1 pg (27.0-31.0); MEAN CORPUSCULAR HGB CONC 33.5 g/dl (33.0-37.0); MEAN PLATELET VOLUME 9.5 fl (9.6-12.3); MONO # 0.5 10*3/uL (0.1-1.0); MONO % 6.2 % (3.0-9.0); NEUT # 6.8 10*3/uL (2.3-7.9); NEUT % 79.2 % (47.0-73.0); PLATELET COUNT AUTOMATED 389 10*3/uL (130-400); RED BLOOD COUNT 4.66 10*6/uL (4.10-5.10); RED CELL DISTRI WIDTH 15.1 % (0-14.5); WHITE BLOOD COUNT 8.6 10*3/uL (4.8-10.8)
[2023-04-14 09:20] LABS: ALKALINE PHOSPHATASE 51 U/L (46-116); BUN 8 mg/dl (9-23); CHLORIDE 105 mmol/L (98-107); POTASSIUM 4.3 mmol/L (3.4-5.1); SGPT/ALT 15 U/L (5-49)
== END 2023-04-14 09:38 | disposition home or self-care (01) ==
LOC: ED 08:22
PROVIDERS: Emergency Medicine
DX: R10.9 Unspecified abdominal pain (principal); A04.72 Enterocolitis due to Clostridium difficile, not specified as recurrent; R11.2 Nausea with vomiting, unspecified; E11.9 Type 2 diabetes mellitus without complications; Z91.041 Radiographic dye allergy status; Z88.0 Allergy status to penicillin; Z88.8 Allergy status to other drugs, medicaments and biological substances; Z90.49 Acquired absence of other specified parts of digestive tract; Z98.890 Other specified postprocedural states

== ENCOUNTER 2023-04-24 07:33 | Emergency (ER) | payer MEDICAID ==
[~2023-04-24] VITALS: Ht 152.4 cm; Wt 64.6 kg
[2023-04-24 08:27] LABS: BASO # 0.1 10*3/uL (0.0-0.1); BASO % 1.2 % (0.0-1.0); EOS # 0.1 10*3/uL (0.0-0.4); EOS % 1.9 % (1.0-4.0); HEMATOCRIT 40.9 % (37.0-47.0); LYMPH # 1.4 10*3/uL (1.3-4.4); LYMPH % 23.6 % (27.0-41.0); MEAN CELL VOLUME 85.6 fl (81.0-99.0); MEAN CORPUSCULAR HGB 28.5 pg (27.0-31.0); MEAN CORPUSCULAR HGB CONC 33.3 g/dl (33.0-37.0); MONO # 0.7 10*3/uL (0.1-1.0); MONO % 11.8 % (3.0-9.0); NEUT # 3.6 10*3/uL (2.3-7.9); PLATELET COUNT AUTOMATED 472 10*3/uL (130-400); RED BLOOD COUNT 4.78 10*6/uL (4.10-5.10); WHITE BLOOD COUNT 5.9 10*3/uL (4.8-10.8)
[2023-04-24 08:36] LABS: ACT PARTIAL THROMBO TIME 25.1 SECONDS (20.0-32.1)
[2023-04-24 08:39] LABS: BILIRUBIN 1+ (Negative); BLOOD Negative (Negative); CLARITY Turbid (Clear); COLOR Dark Yellow (Yellow); GLUCOSE Negative (Negative); KETONE Trace (Negative); LEUKO ESTERASE 1+ (Negative); NITRITE Negative (Negative); SPECIFIC GRAVITY >= 1.030 (1.001-1.030)
[2023-04-24 08:50] LABS: EPITHELIAL CELLS TNTC
[2023-04-24 08:51] LABS: CALCIUM OXALATE CRYSTALS Trace
[2023-04-24 08:53] LABS: ALKALINE PHOSPHATASE 49 U/L (46-116); BUN 10 mg/dl (9-23); CHLORIDE 106 mmol/L (98-107); LIPASE 35 U/L (12-53); POTASSIUM 4.8 mmol/L (3.4-5.1); SGPT/ALT 17 U/L (5-49); TOTAL PROTEIN 7.2 gm/dL (6.0-8.0)
[2023-04-24 08:54] LABS: BETA-HCG, QUANT < 3.0 mIU/mL (3-10)
== END 2023-04-24 11:26 | disposition home or self-care (01) ==
LOC: ED 07:33
PROVIDERS: Emergency Medicine
DX: F41.9 Anxiety disorder, unspecified (principal); E11.9 Type 2 diabetes mellitus without complications; R10.2 Pelvic and perineal pain; Z91.041 Radiographic dye allergy status; Z88.0 Allergy status to penicillin; Z88.8 Allergy status to other drugs, medicaments and biological substances; Z90.49 Acquired absence of other specified parts of digestive tract; Z98.890 Other specified postprocedural states; Z79.899 Other long term (current) drug therapy

== ENCOUNTER 2023-04-26 09:11 | Emergency (ER) | payer MEDICAID ==
[~2023-04-26] VITALS: Wt 72.6 kg
[2023-04-26 11:31] LABS: BASO # 0.1 10*3/uL (0.0-0.1); BASO % 0.8 % (0.0-1.0); EOS % 0.5 % (1.0-4.0); HEMATOCRIT 41.7 % (37.0-47.0); LYMPH # 1.3 10*3/uL (1.3-4.4); LYMPH % 21.5 % (27.0-41.0); MEAN CELL VOLUME 86.7 fl (81.0-99.0); MEAN CORPUSCULAR HGB 27.7 pg (27.0-31.0); MEAN CORPUSCULAR HGB CONC 31.9 g/dl (33.0-37.0); MEAN PLATELET VOLUME 10.3 fl (9.6-12.3); MONO # 0.5 10*3/uL (0.1-1.0); MONO % 8.9 % (3.0-9.0); NEUT # 4.1 10*3/uL (2.3-7.9); NEUT % 67.8 % (47.0-73.0); PLATELET COUNT AUTOMATED 411 10*3/uL (130-400); RED BLOOD COUNT 4.81 10*6/uL (4.10-5.10); RED CELL DISTRI WIDTH 15.1 % (0-14.5); WHITE BLOOD COUNT 6.1 10*3/uL (4.8-10.8)
[2023-04-26 11:58] LABS: ALKALINE PHOSPHATASE 50 U/L (46-116); BUN 10 mg/dl (9-23); CHLORIDE 106 mmol/L (98-107); LIPASE 36 U/L (12-53); POTASSIUM 4.6 mmol/L (3.4-5.1); SGPT/ALT 15 U/L (5-49); TOTAL PROTEIN 7.2 gm/dL (6.0-8.0)
== END 2023-04-26 12:06 | disposition home or self-care (01) ==
LOC: ED 09:11
PROVIDERS: Emergency Medicine
DX: R10.84 Generalized abdominal pain (principal); R11.2 Nausea with vomiting, unspecified; F41.9 Anxiety disorder, unspecified; F32.A Depression, unspecified; E11.9 Type 2 diabetes mellitus without complications; I10 Essential (primary) hypertension; E78.5 Hyperlipidemia, unspecified; F17.290 Nicotine dependence, other tobacco product, uncomplicated; Z91.041 Radiographic dye allergy status; Z88.8 Allergy status to other drugs, medicaments and biological substances; Z88.0 Allergy status to penicillin; Z79.899 Other long term (current) drug therapy; Z90.49 Acquired absence of other specified parts of digestive tract; Z98.890 Other specified postprocedural states

== ENCOUNTER 2023-04-29 08:22 | Emergency (ER) | payer MEDICAID ==
[~2023-04-29] VITALS: Ht 152.4 cm; Wt 69.9 kg
[2023-04-29 09:00] LABS: BASO % 0.7 % (0.0-1.0); EOS # 0.1 10*3/uL (0.0-0.4); EOS % 1.9 % (1.0-4.0); LYMPH # 1.6 10*3/uL (1.3-4.4); LYMPH % 26.8 % (27.0-41.0); MEAN CELL VOLUME 83.7 fl (81.0-99.0); MEAN CORPUSCULAR HGB CONC 33.4 g/dl (33.0-37.0); MEAN PLATELET VOLUME 9.6 fl (9.6-12.3); MONO # 0.5 10*3/uL (0.1-1.0); MONO % 8.5 % (3.0-9.0); NEUT # 3.7 10*3/uL (2.3-7.9); NEUT % 61.8 % (47.0-73.0); PLATELET COUNT AUTOMATED 392 10*3/uL (130-400); RED BLOOD COUNT 4.54 10*6/uL (4.10-5.10); RED CELL DISTRI WIDTH 14.6 % (0-14.5); WHITE BLOOD COUNT 5.9 10*3/uL (4.8-10.8)
[2023-04-29 09:23] LABS: ALKALINE PHOSPHATASE 48 U/L (46-116); BUN 7 mg/dl (9-23); CHLORIDE 104 mmol/L (98-107); POTASSIUM 3.8 mmol/L (3.4-5.1); SGPT/ALT 13 U/L (5-49); TOTAL PROTEIN 6.9 gm/dL (6.0-8.0)
== END 2023-04-29 10:33 | disposition home or self-care (01) ==
LOC: ED 08:22
PROVIDERS: Emergency Medicine
DX: R51.9 Headache, unspecified (principal); R07.89 Other chest pain; F41.9 Anxiety disorder, unspecified; E11.9 Type 2 diabetes mellitus without complications; I10 Essential (primary) hypertension; F32.A Depression, unspecified; Z91.041 Radiographic dye allergy status; Z88.0 Allergy status to penicillin; Z88.8 Allergy status to other drugs, medicaments and biological substances; Z90.49 Acquired absence of other specified parts of digestive tract; Z98.890 Other specified postprocedural states

== ENCOUNTER 2023-05-01 09:19 | Emergency (ER) | payer MEDICAID ==
[~2023-05-01] VITALS: Wt 69.9 kg
[2023-05-01 10:42] LABS: BASO # 0.1 10*3/uL (0.0-0.1); BASO % 1.1 % (0.0-1.0); EOS # 0.1 10*3/uL (0.0-0.4); EOS % 1.1 % (1.0-4.0); HEMATOCRIT 38.9 % (37.0-47.0); LYMPH % 31.7 % (27.0-41.0); MEAN CELL VOLUME 83.3 fl (81.0-99.0); MEAN CORPUSCULAR HGB 27.6 pg (27.0-31.0); MEAN CORPUSCULAR HGB CONC 33.2 g/dl (33.0-37.0); MEAN PLATELET VOLUME 9.7 fl (9.6-12.3); MONO # 0.7 10*3/uL (0.1-1.0); MONO % 10.8 % (3.0-9.0); NEUT # 3.4 10*3/uL (2.3-7.9); NEUT % 54.8 % (47.0-73.0); PLATELET COUNT AUTOMATED 371 10*3/uL (130-400); RED BLOOD COUNT 4.67 10*6/uL (4.10-5.10); RED CELL DISTRI WIDTH 14.9 % (0-14.5); WHITE BLOOD COUNT 6.2 10*3/uL (4.8-10.8)
[2023-05-01 10:52] LABS: ACT PARTIAL THROMBO TIME 25.2 SECONDS (20.0-32.1)
[2023-05-01 11:04] LABS: ALKALINE PHOSPHATASE 45 U/L (46-116); BETA-HCG, QUANT < 3.0 mIU/mL (3-10); BUN 10 mg/dl (9-23); CHLORIDE 103 mmol/L (98-107); LIPASE 32 U/L (12-53); POTASSIUM 3.7 mmol/L (3.4-5.1); SGPT/ALT 15 U/L (5-49); TOTAL PROTEIN 6.9 gm/dL (6.0-8.0)
== END 2023-05-01 13:25 | disposition home or self-care (01) ==
LOC: ED 09:19
PROVIDERS: Emergency Medicine
DX: G43.909 Migraine, unspecified, not intractable, without status migrainosus (principal); E11.9 Type 2 diabetes mellitus without complications; R10.2 Pelvic and perineal pain; Z91.041 Radiographic dye allergy status; Z88.0 Allergy status to penicillin; Z88.8 Allergy status to other drugs, medicaments and biological substances; Z90.49 Acquired absence of other specified parts of digestive tract; Z98.890 Other specified postprocedural states

== ENCOUNTER 2023-05-04 10:19 | Emergency (ER) | payer OTHER ==
[~2023-05-04] VITALS: Ht 152.4 cm; Wt 70.3 kg
[2023-05-04 12:51] LABS: BILIRUBIN Negative (Negative); BLOOD 2+ (Negative); CLARITY Clear (Clear); COLOR Yellow (Yellow); GLUCOSE 1+ (Negative); KETONE Negative (Negative); LEUKO ESTERASE Negative (Negative); NITRITE Negative (Negative); UROBILINOGEN 0.2 E.U./dl (0.0-1.0)
[2023-05-04 13:02] LABS: BACTERIA 2+; EPITHELIAL CELLS 21-30; RBC TNTC rbc/hpf (0-2)
[2023-05-04 13:19] LABS: BASO # 0.1 10*3/uL (0.0-0.1); BASO % 0.5 % (0.0-1.0); EOS % 0.3 % (1.0-4.0); HEMATOCRIT 36.8 % (37.0-47.0); LYMPH # 1.8 10*3/uL (1.3-4.4); LYMPH % 20.2 % (27.0-41.0); MEAN CELL VOLUME 83.3 fl (81.0-99.0); MEAN CORPUSCULAR HGB 27.6 pg (27.0-31.0); MEAN CORPUSCULAR HGB CONC 33.2 g/dl (33.0-37.0); MEAN PLATELET VOLUME 9.9 fl (9.6-12.3); MONO # 0.7 10*3/uL (0.1-1.0); MONO % 7.6 % (3.0-9.0); NEUT # 6.5 10*3/uL (2.3-7.9); NEUT % 71.1 % (47.0-73.0); PLATELET COUNT AUTOMATED 343 10*3/uL (130-400); RED BLOOD COUNT 4.42 10*6/uL (4.10-5.10); RED CELL DISTRI WIDTH 14.6 % (0-14.5); WHITE BLOOD COUNT 9.1 10*3/uL (4.8-10.8)
[2023-05-04 13:46] LABS: ALKALINE PHOSPHATASE 45 U/L (46-116); BUN 9 mg/dl (9-23); CHLORIDE 107 mmol/L (98-107); LIPASE 36 U/L (12-53); POTASSIUM 4.4 mmol/L (3.4-5.1); SGPT/ALT 13 U/L (5-49); TOTAL PROTEIN 6.8 gm/dL (6.0-8.0)
[2023-05-05] MEDS ORDERED: VISTARIL25 MG PO (11:59)
== END 2023-05-04 17:08 | disposition home or self-care (01) ==
LOC: ED 10:19
PROVIDERS: Physician Assistant Medical
DX: K59.00 Constipation, unspecified (principal); R11.0 Nausea; E11.9 Type 2 diabetes mellitus without complications; Z91.041 Radiographic dye allergy status; Z88.0 Allergy status to penicillin; Z88.8 Allergy status to other drugs, medicaments and biological substances; Z90.49 Acquired absence of other specified parts of digestive tract; Z98.890 Other specified postprocedural states

== ENCOUNTER 2023-05-04 22:32 | Emergency (ER) | payer OTHER ==
[~2023-05-04] VITALS: Ht 152.4 cm; Wt 70.3 kg
[2023-05-04 23:15] LABS: BUN 10 mg/dl (9-23); CHLORIDE 107 mmol/L (98-107); POTASSIUM 4.2 mmol/L (3.4-5.1)
[2023-05-05] MEDS ORDERED: VISTARIL25 MG PO (11:59)
== END 2023-05-04 23:43 | disposition home or self-care (01) ==
LOC: ED 22:32
PROVIDERS: Internal Medicine
DX: F41.9 Anxiety disorder, unspecified (principal); E11.9 Type 2 diabetes mellitus without complications; Z91.041 Radiographic dye allergy status; Z88.0 Allergy status to penicillin; Z88.8 Allergy status to other drugs, medicaments and biological substances; Z90.49 Acquired absence of other specified parts of digestive tract; Z98.890 Other specified postprocedural states

== ENCOUNTER 2023-05-05 09:36 | Emergency (ER) | payer OTHER ==
[~2023-05-05] VITALS: Ht 152.4 cm; Wt 68.0 kg
[2023-05-05 11:30] LABS: BILIRUBIN Negative (Negative); BLOOD Negative (Negative); CLARITY Clear (Clear); COLOR Yellow (Yellow); GLUCOSE Negative (Negative); KETONE Trace (Negative); LEUKO ESTERASE Negative (Negative); NITRITE Negative (Negative); PH 5.5 (4.5-8.0); SPECIFIC GRAVITY >= 1.030 (1.001-1.030)
[2023-05-05 11:37] LABS: URINE AMPHETAMINES Negative (1000ng/ml); URINE BARBITURATES Negative (200ng/ml); URINE BENZODIAZEPINES Positive (200ng/ml); URINE CANNABINOIDS (THC) Positive (50ng/ml); URINE COCAINE Negative (300ng/ml); URINE METHADONE Negative (300ng/ml); URINE OPIATES Negative (300ng/ml); URINE PHENCYCLIDINE Negative (25ng/ml)
[2023-05-05 11:47] LABS: BACTERIA 1+; MUCOUS 1+
[2023-05-05] MEDS ORDERED: VISTARIL25 MG PO (11:59)
== END 2023-05-05 12:05 | disposition home or self-care (01) ==
LOC: ED 09:36
PROVIDERS: Family Medicine
DX: F41.9 Anxiety disorder, unspecified (principal); R41.0 Disorientation, unspecified; T40.715A Adverse effect of cannabis, initial encounter; E11.9 Type 2 diabetes mellitus without complications; Z91.041 Radiographic dye allergy status; Z88.0 Allergy status to penicillin; Z88.8 Allergy status to other drugs, medicaments and biological substances; Z90.49 Acquired absence of other specified parts of digestive tract; Z79.899 Other long term (current) drug therapy; Z98.890 Other specified postprocedural states; Y92.89 Other specified places as the place of occurrence of the external cause

== ENCOUNTER 2023-05-10 12:38 | Emergency (ER) | payer SELFPAY ==
[~2023-05-10] VITALS: Ht 152.4 cm; Wt 68.0 kg
[~2023-05-10 12:38] MED LIST changes: +VISTARIL25 MG PO
[2023-05-10 13:38] LABS: BASO # 0.1 10*3/uL (0.0-0.1); BASO % 0.6 % (0.0-1.0); EOS # 0.1 10*3/uL (0.0-0.4); EOS % 1.1 % (1.0-4.0); HEMATOCRIT 39.3 % (37.0-47.0); LYMPH # 1.4 10*3/uL (1.3-4.4); LYMPH % 16.6 % (27.0-41.0); MEAN CELL VOLUME 85.4 fl (81.0-99.0); MEAN CORPUSCULAR HGB 27.4 pg (27.0-31.0); MEAN CORPUSCULAR HGB CONC 32.1 g/dl (33.0-37.0); MEAN PLATELET VOLUME 9.6 fl (9.6-12.3); MONO # 0.9 10*3/uL (0.1-1.0); MONO % 10.4 % (3.0-9.0); NEUT % 70.9 % (47.0-73.0); PLATELET COUNT AUTOMATED 344 10*3/uL (130-400); RED CELL DISTRI WIDTH 14.8 % (0-14.5); WHITE BLOOD COUNT 8.4 10*3/uL (4.8-10.8)
[2023-05-10 14:27] LABS: ALKALINE PHOSPHATASE 48 U/L (46-116); BUN 10 mg/dl (9-23); CHLORIDE 106 mmol/L (98-107); LIPASE 33 U/L (12-53); POTASSIUM 3.9 mmol/L (3.4-5.1); SGPT/ALT 14 U/L (5-49)
[2023-05-10] MEDS ORDERED: ONDANSETRON4 MG SL (15:44)
== END 2023-05-10 15:46 | disposition home or self-care (01) ==
LOC: ED 12:38
PROVIDERS: Emergency Medicine
DX: K62.5 Hemorrhage of anus and rectum (principal); R10.32 Left lower quadrant pain; E11.9 Type 2 diabetes mellitus without complications; Z91.041 Radiographic dye allergy status; Z88.0 Allergy status to penicillin; Z88.8 Allergy status to other drugs, medicaments and biological substances; Z98.890 Other specified postprocedural states; Z90.49 Acquired absence of other specified parts of digestive tract

== ENCOUNTER 2023-05-11 22:41 | Emergency (ER) | payer SELFPAY ==
[~2023-05-11] VITALS: Ht 152.4 cm; Wt 68.0 kg
[2023-05-11 23:11] LABS: BASO # 0.1 10*3/uL (0.0-0.1); BASO % 0.7 % (0.0-1.0); EOS # 0.3 10*3/uL (0.0-0.4); HEMATOCRIT 38.3 % (37.0-47.0); LYMPH # 2.3 10*3/uL (1.3-4.4); LYMPH % 32.7 % (27.0-41.0); MEAN CELL VOLUME 86.7 fl (81.0-99.0); MEAN CORPUSCULAR HGB 27.1 pg (27.0-31.0); MEAN CORPUSCULAR HGB CONC 31.3 g/dl (33.0-37.0); MONO # 0.6 10*3/uL (0.1-1.0); MONO % 9.1 % (3.0-9.0); NEUT # 3.7 10*3/uL (2.3-7.9); NEUT % 53.2 % (47.0-73.0); PLATELET COUNT AUTOMATED 303 10*3/uL (130-400); RED BLOOD COUNT 4.42 10*6/uL (4.10-5.10); RED CELL DISTRI WIDTH 14.9 % (0-14.5)
[2023-05-11 23:32] LABS: ALKALINE PHOSPHATASE 45 U/L (46-116); BUN 13 mg/dl (9-23); CHLORIDE 102 mmol/L (98-107); POTASSIUM 4.1 mmol/L (3.4-5.1); SGPT/ALT 13 U/L (5-49); TOTAL PROTEIN 6.6 gm/dL (6.0-8.0)
== END 2023-05-12 00:15 | disposition left against medical advice (07) ==
LOC: ED 22:41
PROVIDERS: Internal Medicine
DX: R07.89 Other chest pain (principal); R06.02 Shortness of breath; F41.9 Anxiety disorder, unspecified; E11.9 Type 2 diabetes mellitus without complications; Z91.041 Radiographic dye allergy status; Z88.0 Allergy status to penicillin; Z88.8 Allergy status to other drugs, medicaments and biological substances; Z90.49 Acquired absence of other specified parts of digestive tract; Z98.890 Other specified postprocedural states; Z53.29 Procedure and treatment not carried out because of patient's decision for other reasons

== ENCOUNTER 2024-07-07 11:23 | Emergency (ER) | payer OTHER ==
[~2024-07-07] VITALS: Wt 69.9 kg
[2024-07-07] MEDS ORDERED: SODIUM CHLORIDE 0.9% 1,000 ML IV SCH (11:35)
[2024-07-07] MEDS ORDERED: fentaNYL CITRATE 100 MCG/2 ML VIAL IV ONE (11:35)
[2024-07-07 11:57] LABS: BASO % 0.5 % (0.0-1.0); EOS # 0.1 10*3/uL (0.0-0.4); EOS % 0.7 % (1.0-4.0); HEMATOCRIT 37.4 % (37.0-47.0); MEAN CELL VOLUME 80.8 fl (81.0-99.0); MEAN CORPUSCULAR HGB 25.9 pg (27.0-31.0); MEAN CORPUSCULAR HGB CONC 32.1 g/dl (33.0-37.0); MEAN PLATELET VOLUME 9.7 fl (9.6-12.3); MONO # 0.5 10*3/uL (0.1-1.0); MONO % 6.4 % (3.0-9.0); NEUT # 6.4 10*3/uL (2.3-7.9); NEUT % 77.6 % (47.0-73.0); PLATELET COUNT AUTOMATED 426 10*3/uL (130-400); RED BLOOD COUNT 4.63 10*6/uL (4.10-5.10); RED CELL DISTRI WIDTH 15.4 % (0-14.5); WHITE BLOOD COUNT 8.3 10*3/uL (4.8-10.8)
[2024-07-07] MEDS ORDERED: Ondansetron Hydrochloride 4 MG/2 ML VIAL IV ONE (12:00)
[2024-07-07 12:18] LABS: ALKALINE PHOSPHATASE 54 U/L (46-116); BUN 11 mg/dl (9-23); CHLORIDE 104 mmol/L (98-107); LIPASE 39 U/L (12-53); POTASSIUM 3.3 mmol/L (3.4-5.1); SGPT/ALT 15 U/L (5-49); TOTAL PROTEIN 6.9 gm/dL (6.0-8.0)
[2024-07-07] MEDS ORDERED: POTASSIUM CHLORIDE 20 MEQ TAB PO ONE (12:30)
[2024-07-07 12:52] LABS: BILIRUBIN Negative (Negative); BLOOD 3+ (Negative); CLARITY Clear (Clear); COLOR Orange (Yellow); GLUCOSE 2+ (Negative); KETONE Trace (Negative); LEUKO ESTERASE Trace (Negative); NITRITE Negative (Negative); PH 6.5 (4.5-8.0); SPECIFIC GRAVITY 1.025 (1.001-1.030); UROBILINOGEN 0.2 E.U./dl (0.0-1.0)
[2024-07-07 13:01] LABS: RBC TNTC rbc/hpf (0-2)
[2024-07-07] MEDS ORDERED: Labetalol Hydrochloride 20 MG/4 ML SYR IV ONE (13:50)
[2024-07-07] MEDS ORDERED: ACETAMINOPHEN 325 MG TAB PO ONE (13:50)
[2024-07-07] MEDS ORDERED: COZAAR50 M1 PO ×2 (15:45→15:59)
[2024-07-07] MEDS ORDERED: CIPRO500 MG PO (15:45)
== END 2024-07-07 15:48 | disposition home or self-care (01) ==
LOC: ED 11:23
PROVIDERS: Nurse Practitioner Family
DX: N39.0 Urinary tract infection, site not specified (principal); E87.6 Hypokalemia; I10 Essential (primary) hypertension; Z20.822 Contact with and (suspected) exposure to COVID-19; E11.9 Type 2 diabetes mellitus without complications; F41.9 Anxiety disorder, unspecified; I48.91 Unspecified atrial fibrillation; G43.909 Migraine, unspecified, not intractable, without status migrainosus; F32.A Depression, unspecified; F17.290 Nicotine dependence, other tobacco product, uncomplicated; Z87.42 Personal history of other diseases of the female genital tract; Z91.041 Radiographic dye allergy status; Z88.0 Allergy status to penicillin; Z88.8 Allergy status to other drugs, medicaments and biological substances; Z79.899 Other long term (current) drug therapy; Z90.49 Acquired absence of other specified parts of digestive tract; Z98.890 Other specified postprocedural states

== ENCOUNTER 2024-08-10 14:54 | Emergency (ER) | payer OTHER ==
[~2024-08-10] VITALS: Ht 152.4 cm; Wt 68.5 kg
[~2024-08-10 14:54] MED LIST changes: +COZAAR50 M1 PO
[2024-08-10] MEDS ORDERED: SODIUM CHLORIDE 0.9% 1,000 ML IV ONE (15:25)
[2024-08-10] MEDS ORDERED: Ondansetron Hydrochloride 4 MG/2 ML VIAL IV ONE ×2 (15:25→17:05)
[2024-08-10 15:43] LABS: BASO # 0.1 10*3/uL (0.0-0.1); BASO % 0.8 % (0.0-1.0); EOS % 0.5 % (1.0-4.0); HEMATOCRIT 39.6 % (37.0-47.0); MEAN CELL VOLUME 79.8 fl (81.0-99.0); MEAN CORPUSCULAR HGB 25.4 pg (27.0-31.0); MEAN CORPUSCULAR HGB CONC 31.8 g/dl (33.0-37.0); MEAN PLATELET VOLUME 9.7 fl (9.6-12.3); MONO # 0.8 10*3/uL (0.1-1.0); MONO % 8.6 % (3.0-9.0); NEUT # 5.9 10*3/uL (2.3-7.9); PLATELET COUNT AUTOMATED 517 10*3/uL (130-400); RED BLOOD COUNT 4.96 10*6/uL (4.10-5.10); RED CELL DISTRI WIDTH 13.9 % (0-14.5); WHITE BLOOD COUNT 8.7 10*3/uL (4.8-10.8)
[2024-08-10 15:53] LABS: ACT PARTIAL THROMBO TIME 27.2 SECONDS (20.0-32.1)
[2024-08-10 16:04] LABS: ALKALINE PHOSPHATASE 69 U/L (46-116); BUN 8 mg/dl (9-23); CHLORIDE 100 mmol/L (98-107); LIPASE 35 U/L (12-53); POTASSIUM 3.7 mmol/L (3.4-5.1); SGPT/ALT 20 U/L (5-49); TOTAL PROTEIN 7.6 gm/dL (6.0-8.0)
[2024-08-10 16:40] LABS: BILIRUBIN Negative (Negative); BLOOD Negative (Negative); CLARITY Clear (Clear); COLOR Yellow (Yellow); GLUCOSE Negative (Negative); KETONE 2+ (Negative); LEUKO ESTERASE Negative (Negative); NITRITE Negative (Negative); PH 5.5 (4.5-8.0); SPECIFIC GRAVITY 1.015 (1.001-1.030); UROBILINOGEN 0.2 E.U./dl (0.0-1.0)
[2024-08-10 16:47] LABS: RBC 0-2 rbc/hpf (0-2)
[2024-08-10 16:48] LABS: BACTERIA TRACE; EPITHELIAL CELLS 16-20; HYALINE CAST 0-2; MUCOUS 2+
[2024-08-10] MEDS ORDERED: hydrOXYzine pamoate 25 MG CAP PO ONE (17:05)
[2024-08-10] MEDS ORDERED: Ketorolac Tromethamine 15 MG/ML VIAL IV ONE (17:05)
[2024-08-10] MEDS ORDERED: VISTARIL25 MG PO (18:26)
[2024-08-10] MEDS ORDERED: ACETAMINOPHEN 325 MG TAB PO ONE (18:30)
== END 2024-08-10 18:39 | disposition home or self-care (01) ==
LOC: ED 14:54
PROVIDERS: Internal Medicine
DX: R10.31 Right lower quadrant pain (principal); F41.9 Anxiety disorder, unspecified; I10 Essential (primary) hypertension; I48.91 Unspecified atrial fibrillation; R11.0 Nausea; E11.9 Type 2 diabetes mellitus without complications; Z91.041 Radiographic dye allergy status; Z88.0 Allergy status to penicillin; Z88.8 Allergy status to other drugs, medicaments and biological substances; Z90.49 Acquired absence of other specified parts of digestive tract

== ENCOUNTER 2024-09-18 10:21 | Emergency (ER) | payer OTHER ==
[~2024-09-18] VITALS: Wt 68.0 kg
[2024-09-18 13:09] LABS: BASO # 0.1 10*3/uL (0.0-0.1); BASO % 0.7 % (0.0-1.0); EOS # 0.1 10*3/uL (0.0-0.4); HEMATOCRIT 40.9 % (37.0-47.0); MEAN CELL VOLUME 81.5 fl (81.0-99.0); MEAN CORPUSCULAR HGB 24.5 pg (27.0-31.0); MEAN CORPUSCULAR HGB CONC 30.1 g/dl (33.0-37.0); MEAN PLATELET VOLUME 10.2 fl (9.6-12.3); MONO # 0.6 10*3/uL (0.1-1.0); MONO % 5.6 % (3.0-9.0); NEUT # 7.3 10*3/uL (2.3-7.9); NEUT % 74.1 % (47.0-73.0); PLATELET COUNT AUTOMATED 467 10*3/uL (130-400); RED BLOOD COUNT 5.02 10*6/uL (4.10-5.10); RED CELL DISTRI WIDTH 14.4 % (0-14.5); WHITE BLOOD COUNT 9.8 10*3/uL (4.8-10.8)
[2024-09-18 13:10] LABS: VENOUS BLOOD GAS O2 SAT 77.2 % (60.0-85.0)
[2024-09-18 13:24] LABS: BUN 11 mg/dl (9-23); CHLORIDE 107 mmol/L (98-107); POTASSIUM 4.1 mmol/L (3.4-5.1)
[2024-09-18] MEDS ORDERED: Ketorolac Tromethamine 60 MG/2 ML VIAL IM ONE (13:45)
[2024-09-18] MEDS ORDERED: ACETAMINOPHEN 325 MG TAB PO ONE (13:45)
== END 2024-09-18 13:58 | disposition home or self-care (01) ==
LOC: ED 10:21
PROVIDERS: Nurse Practitioner Family
DX: S09.90XA Unspecified injury of head, initial encounter (principal); T59.811A Toxic effect of smoke, accidental (unintentional), initial encounter; R07.1 Chest pain on breathing; I10 Essential (primary) hypertension; F41.9 Anxiety disorder, unspecified; G43.909 Migraine, unspecified, not intractable, without status migrainosus; M19.90 Unspecified osteoarthritis, unspecified site; F32.A Depression, unspecified; E11.40 Type 2 diabetes mellitus with diabetic neuropathy, unspecified; F17.290 Nicotine dependence, other tobacco product, uncomplicated; Z91.041 Radiographic dye allergy status; Z88.8 Allergy status to other drugs, medicaments and biological substances; Z88.0 Allergy status to penicillin; Z79.899 Other long term (current) drug therapy; Z87.42 Personal history of other diseases of the female genital tract; Z90.49 Acquired absence of other specified parts of digestive tract; Z98.890 Other specified postprocedural states; W22.8XXA Striking against or struck by other objects, initial encounter; Y93.89 Activity, other specified; Y92.098 Other place in other non-institutional residence as the place of occurrence of the external cause; Y99.8 Other external cause status